=== PATIENT | female | born 1995 | race Caucasian/White ===

== ENCOUNTER 2021-07-05 08:00 | Outpatient (CLI) | payer OTHER | END 2021-07-05 23:59 | LOC: LAB.N 08:00 | PROVIDERS: ATTEND Physician Assistant | DX: R05.9 Cough, unspecified (principal); R52 Pain, unspecified; Z20.822 Contact with and (suspected) exposure to COVID-19 ==

== ENCOUNTER 2022-04-13 08:17 | Outpatient (CLI) | payer OTHER ==
[2022-04-13 12:11] LABS: BASOPHILS % (AUTO) 0.5 %; EOSINOPHILS # (AUTO) 0.2 10^3/uL (0.0-0.7); EOSINOPHILS % (AUTO) 3.8 %; HCT - HEMATOCRIT 41.1 % (37.0-47.0); HGB - HEMOGLOBIN 13.2 g/dL (12.0-16.0); LYMPHOCYTES # (AUTO) 1.4 10^3/uL (1.5-3.5); LYMPHOCYTES % (AUTO) 24.9 %; MEAN CORPUSCULAR HEMOGLOBIN 29.5 pg (27.0-31.0); MEAN CORPUSCULAR HGB CONC 32.1 g/dL (32.0-36.0); MEAN CORPUSCULAR VOLUME 91.9 fL (81.0-99.0); MEAN PLATELET VOLUME 10.4 fL (7.9-10.8); MONOCYTES # (AUTO) 0.4 10^3/uL (0.0-1.0); MONOCYTES % (AUTO) 7.3 %; NEUTROPHILS # (AUTO) 3.5 10^3/uL (1.5-6.6); PLT - PLATELET COUNT 243 10^3/uL (130-450); RED BLOOD COUNT 4.47 10^6/uL (4.20-5.40); RED CELL DISTRIBUTION WIDTH 12.5 % (12.0-15.0); WHITE BLOOD COUNT 5.5 x10^3/uL (4.8-10.8)
[2022-04-13 12:54] LABS: ALBUMIN 4.2 g/dL (3.2-5.5); ALBUMIN/GLOBULIN RATIO 1.4 (1.0-2.2); ALKALINE PHOSPHATASE 40 IU/L (42-121); ALT ALANINE AMINOTRANSFERASE 13 IU/L (10-60); AST ASPARTATE AMINOTRANSFERASE 18 IU/L (10-42); BILIRUBIN,TOTAL 0.7 mg/dL (0.2-1.0); BUN - BLOOD UREA NITROGEN 15 mg/dL (6-20); CALCIUM 9.3 mg/dL (8.5-10.3); CARBON DIOXIDE - CO2 28 mmol/L (21-32); CHLORIDE 101 mmol/L (101-111); CHOLESTEROL 165 mg/dL; CREATININE 0.6 mg/dL (0.4-1.0); GFR - MDRD 121 (>89); GLUCOSE 95 mg/dL (70-100); HDL CHOLESTEROL 55 mg/dL; LDL CHOLESTEROL,CALCULATED 100 mg/dL; LDL/HDL RATIO 1.8 (<4.4); SODIUM 136 mmol/L (135-145); TOTAL PROTEIN 7.3 g/dL (6.7-8.2); TRIGLYCERIDES 51 mg/dL; VLDL CHOLESTEROL 10 mg/dL
[2022-04-13 12:55] LABS: THYROID STIMULATING HORMONE 0.78 uIU/mL (0.34-5.60)
== END 2022-04-13 08:18 | disposition home or self-care (01) ==
LOC: LAB.N 08:17
PROVIDERS: ATTEND Physician Assistant
DX: Z13.29 Encounter for screening for other suspected endocrine disorder (principal); Z51.81 Encounter for therapeutic drug level monitoring; Z13.220 Encounter for screening for lipoid disorders
CPT/HCPCS: 36415; 80053; 80061; 83721; 84443; 85025

== ENCOUNTER 2022-04-17 08:57 | Outpatient (CLI) | payer OTHER ==
--- NOTE | 2022-04-17 10:11 | XRAY Report ---
PROCEDURE: Cervical Spine Comp w/Flex/Ext INDICATIONS: CERVICALGIA TECHNIQUE: 7 views of the cervical spine were acquired. COMPARISON: None. FINDINGS: Bones: No fractures or dislocations to the C7 level. No suspicious bony lesions. There is mild-to- moderate facet arthropathy, most pronounced at C4-C5 on the right. Oblique views demonstrate no high-grade foramina stenosis Flexion and extension: There is normal range of motion between flexion and extension. There is trace anterolisthesis of C4 on C5, C5 on C6 and C6 on C7 with flexion. Preserved normal bony alignment. Soft tissues: Prevertebral soft tissues are normal in thickness. IMPRESSION: 1. Degenerative facet arthropathy cervical spine, most pronounced at C4-C5 the right. 2. No significant foraminal stenosis. 3. Trace anterolisthesis at C4-C5, C5-C6 and C6-C7 on flexion. Reviewed by: Chasity Whiting MD on 04/17/2022 10:09 AM PST Approved by: Chasity Whiting MD on 04/17/2022 10:09 AM PST Station ID: [id number]
--- NOTE | 2022-04-17 10:13 | XRAY Report ---
PROCEDURE: Thoracic Spine 3 View INDICATIONS: SCOLIOSIS TECHNIQUE: 3 views of the thoracic spine were acquired. COMPARISON: None. FINDINGS: Bones: No fractures or dislocations. No suspicious bony lesions. There is a dextroscoliosis with ap ex at L2. This mild degenerative disc disease at T8-T9, T9-T10, T10-T11 and T11-T12. 12 pairs of ribs are noted, and appear intact where visualized. Soft tissues: No paravertebral stripe thickening. IMPRESSION: 1. Mild degenerative disease in the lower thoracic spine. 2. Dextroscoliosis. Reviewed by: Chasity Whiting MD on 04/17/2022 10:12 AM [facility] Approved by: Chasity Whiting MD on 04/17/2022 10:12 AM [facility] Station ID: [id number]
--- NOTE | 2022-04-17 10:19 | XRAY Report ---
PROCEDURE: Lumbar Spine Complete INDICATIONS: SCOLIOSIS TECHNIQUE: 5 views of the lumbar spine were acquired. COMPARISON: None. FINDINGS: Bones: 5 cid-jbc-cpcjrmw vertebrae are present. There is dextroscoliosis with apex at L2. Trace an terolisthesis of L5 on S1. No vertebral body compression fractures. No suspicious bony lesions. The re is mild degenerative disc disease at L2-L3, L3-L4 and L4-L5. Moderate facet arthropathy at L3-L4, L4-L5 and L5-S1. Probable pars defect at L5. Soft tissues: Overlying bowel gas pattern is normal. No suspicious soft tissue calcifications. IMPRESSION: 1. Dextroscoliosis. 2. Trace anterolisthesis of L5 on S1. 3. Suspect pars defect at L5. 4. Mild degenerative disc disease. 5. Moderate facet arthropathy. Reviewed by: Chasity Whiting MD on 04/17/2022 10:17 AM PST Approved by: Chasity Whiting MD on 04/17/2022 10:17 AM PST Station ID: [id number]
== END 2022-04-17 08:58 | disposition home or self-care (01) ==
LOC: LAB.N 08:57 → DI.N 08:58
PROVIDERS: ATTEND Physician Assistant
DX: M47.812 Spondylosis without myelopathy or radiculopathy, cervical region (principal); M43.12 Spondylolisthesis, cervical region; M51.34 Other intervertebral disc degeneration, thoracic region; M41.9 Scoliosis, unspecified; M51.36 Other intervertebral disc degeneration, lumbar region; M47.816 Spondylosis without myelopathy or radiculopathy, lumbar region; M47.817 Spondylosis without myelopathy or radiculopathy, lumbosacral region

== ENCOUNTER 2022-06-27 07:13 | Outpatient (CLI) | payer OTHER ==
[2022-06-27] MEDS ORDERED: GADOBUTROL 7.5 MMOL/7.5 ML VIAL ONE (07:20)
[2022-06-27] MEDS ORDERED: GADOBUTROL 7.5 MMOL/7.5 ML VIAL IVP ONE (11:08)
--- NOTE | 2022-06-27 14:57 | MRI Report ---
PROCEDURE: BRAIN W/WO INDICATIONS: MIXED HEADACHE CONTRAST: gadavsit 6.6ml TECHNIQUE: Noncontrast axial T1 spin echo, axial T2 fast spin echo, sagittal and axial FLAIR, coronal T2 fast sp in echo, axial gradient echo, axial diffusion and ADC through the brain. After the administration of contrast, axial and coronal T1 spin echo with fat saturation through the brain. COMPARISON: None. FINDINGS: Image quality: Excellent. CSF spaces: Basal cisterns are patent. No extra-axial fluid collections. Ventricles are normal in size and shape. Brain: No midline shift. No intracranial bleeds or masses. No abnormal intracranial enhancement. There is cerebral volume loss for age. There is periventricular white matter chronic small vessel is chemic change. The brainstem appears normal. Diffusion-weighted images demonstrate no acute ischemi c insults. No chronic ischemic insults. Normal intravascular flow voids are present. Skull and face: Calvarial marrow is normal in signal. Orbits appear normal. Sinuses: Sinuses demonstrate minimal scattered mucosal thickening.. No fluid levels. IMPRESSION: 1. No acute intracranial process. 2. Minimal scattered pansinus mucosal thickening. Reviewed by: Stacey Bettencourt MD on 06/27/2022 2:56 PM PST Approved by: Stacey Bettencourt MD on 06/27/2022 2:56 PM PST Station ID: [id number]
== END 2022-06-27 07:14 | disposition home or self-care (01) ==
LOC: DI 07:13
PROVIDERS: ATTEND Physician Assistant
DX: R51.9 Headache, unspecified (principal)
CPT/HCPCS: 70553; A9585

== ENCOUNTER 2022-11-22 21:40 | Emergency (ER) | payer OTHER ==
--- NOTE | 2022-11-22 22:12 | ED Physician Documentation ---
PD HPI CHEST PAIN - Stated complaint Stated Complaint: HEART PX - Chief complaint Chief Complaint: Cardiac - History obtained from History obtained from: Patient - Additional information Additional information: She had about an hour worth of palpitations with lightheadedness and shortness of breath finishing up about 30 minutes ago. It started at rest. She did drink a lot of caffeine today and got back from an international trip early yesterday so she is tired and jet lag. No chest pain. No personal history of heart problems. Valvular disease runs in the family. Denies pedal edema or calf pain. No possibility of . 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 : None HEENT: None Psych: Anxiety, Obsessive compulsive disorder Musculoskeletal: None Derm: None - Past Surgical History Past Surgical History: No - Present Medications Home Medications: Ambulatory Orders Medication Instructions Recorded Confirmed FLUoxetine [PROzac] 60 mg PO DAILY 11/22/22 11/22/22 - Allergies Allergies/Adverse Reactions: Allergies Allergy/AdvReac Type Severity Reaction Status Date / Time No Known Drug Allergies Allergy Verified 11/22/22 21:58 - Social History Does the pt smoke?: No Smoking Status: Never smoker Does the pt drink ETOH?: Yes Does the pt have substance abuse?: No - Immunizations Immunizations are current?: Yes - POLST Patient has POLST: No PD ED PE NORMAL - Vitals Vital signs reviewed: Yes - General General: Alert and oriented X 3, No acute distress - Cardiac Cardiac: RRR, No murmur - Respiratory Respiratory: No respiratory distress, Clear bilaterally - Abdomen Abdomen: Non tender - Extremities Extremities: No edema, No calf tenderness / cord - Neuro Neuro: Alert and oriented X 3, Normal speech Results - Vitals Vitals: Vital Signs - 24 hr 11/22/22 21:48 Temperature 36.2 C L Heart Rate 89 Respiratory 18 Rate Blood Pressure 143/82 H O2 Saturation 100 Oxygen O2 Source Room air - EKG (time done) 2 EKG releavant findings:: EKG personally interpreted by author of this note. Relevant findings are: Rate: Rate (enter#) (68) Rhythm: NSR [place]: Normal Intervals: Normal [place] QRS: Normal Ischemia: Normal ST segments - Labs Labs: Laboratory Tests 11/22/22 11/22/2223 22:20 22:20 22:20 WBC 8.9 RBC 4.36 Hgb 13.2 Hct 39.9 MCV 91.5 MCH 30.3 MCHC 33.1 RDW 12.4 Plt Count 214 MPV 9.3 Neut # (Auto) 6.0 Lymph # (Auto) 1.9 Barren # (Auto) 0.7 Eos # (Auto) 0.2 Baso # (Auto) 0.1 Absolute Nucleated RBC 0.00 Nucleated RBC % 0.0 D-Dimer < 200.0 L Sodium 138 Potassium 3.0 L Chloride 105 Carbon Dioxide 27 Anion Gap 6.0 BUN 13 Creatinine 0.8 Estimated GFR (MDRD) 86 L Glucose 97 Calcium 9.1 Troponin I High Sens 11/22/22 22:20 WBC RBC Hgb Hct MCV MCH MCHC RDW Plt Count MPV Neut # (Auto) Lymph # (Auto) Barren # (Auto) Eos # (Auto) Baso # (Auto) Absolute Nucleated RBC Nucleated RBC % D-Dimer Sodium Potassium Chloride Carbon Dioxide Anion Gap BUN Creatinine Estimated GFR (MDRD) Glucose Calcium Troponin I High Sens < 2.3 L PD Medical Decision Making - ED course ED course: 27-year-old with a resolved hour of palpitations that she thinks is related to anxiety and excessive caffeine use in the setting of jet lag. Differential would have to consider thromboembolic disease given recent travel although that seems somewhat less likely given the resolved nature of her symptoms, normal vital signs, and lack of physical findings of DVT. D-dimer is pending. Departure - Departure Disposition: 01 Home, Self Care Clinical Impression: Palpitations Condition: Stable Record reviewed to determine appropriate education?: Yes Instructions: ED Palpitations Comments: Call your doctor to arrange a follow-up appointment, make the next available appointment. In the interim, return anytime if worse or if new symptoms develop.
[2022-11-22 22:26] LABS: BASOPHILS # (AUTO) 0.1 10^3/uL (0.0-0.1); BASOPHILS % (AUTO) 0.7 %; EOSINOPHILS # (AUTO) 0.2 10^3/uL (0.0-0.7); EOSINOPHILS % (AUTO) 2.7 %; HCT - HEMATOCRIT 39.9 % (37.0-47.0); HGB - HEMOGLOBIN 13.2 g/dL (12.0-16.0); LYMPHOCYTES # (AUTO) 1.9 10^3/uL (1.5-3.5); LYMPHOCYTES % (AUTO) 21.3 %; MEAN CORPUSCULAR HEMOGLOBIN 30.3 pg (27.0-31.0); MEAN CORPUSCULAR HGB CONC 33.1 g/dL (32.0-36.0); MEAN CORPUSCULAR VOLUME 91.5 fL (81.0-99.0); MEAN PLATELET VOLUME 9.3 fL (7.9-10.8); MONOCYTES # (AUTO) 0.7 10^3/uL (0.0-1.0); MONOCYTES % (AUTO) 7.8 %; NEUTROPHILS % (AUTO) 67.3 %; PLT - PLATELET COUNT 214 10^3/uL (130-450); RED BLOOD COUNT 4.36 10^6/uL (4.20-5.40); RED CELL DISTRIBUTION WIDTH 12.4 % (12.0-15.0); WHITE BLOOD COUNT 8.9 x10^3/uL (4.8-10.8)
[2022-11-22 22:35] LABS: CALCIUM 9.1 mg/dL (8.5-10.3); CREATININE 0.8 mg/dL (0.4-1.0)
[2022-11-22 23:03] VITALS: BP 135/79
--- OUTSIDE RECORDS SUMMARY | 2022-11-22 23:18 | EXTERNAL MEDICAL SUMMARY RPT | Continuity of Care Document ---
Author Name Unknown Address [address] [place] [address] Phone Organization [facility] Address [address] [place] [address] Phone Results/Labs test date author facility value unit interpretation Result panel 1 (unknown) (no date) (unknown) (unknown) <1.00 ug/ml(g) 04142-0 (unknown) (no date) (unknown) (unknown) <1.00 ug/ml(g) (unknow n) (unknown) (no date) (unknown) (unknown) Negative (units unknown) (unknown) (unknown) (no date) (unknown) (unknown) Negative (units unknown) 6371-9 (unknown) (no date) (unknown) (unknown) Negative (units unknown) 6412-1 Result panel 2 (unknown) (no date) (unknown) (unknown) (no value) (units unknown) (unknown) (unknown) (no date) (unknown) (unknown) Negative for Campylobacter (units unknown) (unknown) Result panel 3 (unknown) (no date) (unknown) (unknown) Negative (units unknown) (unknown) Result panel 4 (unknown) (no date) (unknown) (unknown) (no value) (units unknown) (unknown) (unknown) (no date) (unknown) (unknown) Negative for Campylobacter (units unknown) (unknown) (unknown) (no date) (unknown) (unknown) No fecal leuko cytes present (units unknown) (unknown) Result panel 5 (unknown) (no date) (unknown) (unknown) (no value) (units unknown) (unknown) (unknown) (no date) (unknown) (unknown) Moderate growt h - Mixed fecal dre (units unknown) (unknown) (unknown) (no date) (unknown) (unknown) Negative for Campylobacter (units unknown) (unknown) (unknown) (no date) (unknown) (unknown) No fecal leuko cytes present (units unknown) (unknown) Result panel 6 (unknown) (no date) (unknown) (unknown) (no value) (units unknown) (unknown) (unknown) (no date) (unknown) (unknown) Moderate growt h - Mixed fecal dre (units unknown) (unknown) (unknown) (no date) (unknown) (unknown) Negative for Campylobacter (units unknown) (unknown) (unknown) (no date) (unknown) (unknown) Negative for S lisandro Toxin 1 (units unknown) (unknown) (unknown) (no date) (unknown) (unknown) Negative for S lisandro Toxin 2 (units unknown) (unknown) (unknown) (no date) (unknown) (unknown) No fecal leuko cytes present (units unknown) (unknown) Result panel 7 (unknown) (no date) (unknown) (unknown) (no value) (units unknown) (unknown) (unknown) (no date) (unknown) (unknown) Moderate growt h - Mixed fecal dre (units unknown) (unknown) (unknown) (no date) (unknown) (unknown) Negative for Campylobacter (units unknown) (unknown) (unknown) (no date) (unknown) (unknown) Negative for S lisandro Toxin 1 (units unknown) (unknown) (unknown) (no date) (unknown) (unknown) Negative for S lisandro Toxin 2 (units unknown) (unknown) (unknown) (no date) (unknown) (unknown) No Salmonella/Shigella /Yersinia/Campy/E.c jose armando 0157 isolated (units unknown) (unknown) (unknown) (no date) (unknown) (unknown) No fecal leuko cytes present (units unknown) (unknown) Result panel 8 (unknown) (no date) (unknown) (unknown) (no value) (units unknown) (unknown) (unknown) (no date) (unknown) (unknown) [address], [place], [place] [id number] (units unknown) (unknown) (unknown) (no date) (unknown) (unknown) Cna Hha: Yany Dejesus MD, Phone: [phone] (units unknown) (unknown) (unknown) (no date) (unknown) (unknown) Negative (units unknown) (unknown) (unknown) (no date) (unknown) (unknown) Performed at: [facility] - [facility] [place] (units unknown) (unknown) Result panel 9 (unknown) (no date) (unknown) (unknown) <1.00 ug/ml(g) (unknow n) (unknown) (no date) (unknown) (unknown) <1.00 ug/ml(g) (unknow n)
== END 2022-11-22 23:21 | disposition home or self-care (01) ==
LOC: ED 21:40
DX: R00.2 Palpitations (principal)
CPT/HCPCS: 36415; 80048; 84484; 85025; 85379; 93005; 99283; 99284

== ENCOUNTER 2023-01-18 08:49 | Outpatient (CLI) | payer OTHER ==
[2023-01-18 12:45] LABS: BASOPHILS % (AUTO) 0.7 %; EOSINOPHILS # (AUTO) 0.2 10^3/uL (0.0-0.7); HCT - HEMATOCRIT 41.1 % (37.0-47.0); HGB - HEMOGLOBIN 13.2 g/dL (12.0-16.0); MEAN CORPUSCULAR HEMOGLOBIN 29.9 pg (27.0-31.0); MEAN CORPUSCULAR HGB CONC 32.1 g/dL (32.0-36.0); MEAN CORPUSCULAR VOLUME 93.2 fL (81.0-99.0); MEAN PLATELET VOLUME 10.5 fL (7.9-10.8); MONOCYTES # (AUTO) 0.4 10^3/uL (0.0-1.0); MONOCYTES % (AUTO) 6.5 %; NEUTROPHILS # (AUTO) 3.8 10^3/uL (1.5-6.6); NEUTROPHILS % (AUTO) 70.4 %; PLT - PLATELET COUNT 222 10^3/uL (130-450); RED BLOOD COUNT 4.41 10^6/uL (4.20-5.40); RED CELL DISTRIBUTION WIDTH 12.5 % (12.0-15.0); WHITE BLOOD COUNT 5.4 x10^3/uL (4.8-10.8)
[2023-01-18 13:10] LABS: ALBUMIN 4.3 g/dL (3.2-5.5); ALBUMIN/GLOBULIN RATIO 1.5 (1.0-2.2); BILIRUBIN,TOTAL 0.4 mg/dL (0.2-1.0); CALCIUM 9.3 mg/dL (8.5-10.3); CREATININE 0.6 mg/dL (0.6-1.3); CRP - C-REACTIVE PROTEIN 0.5 mg/dL (<0.5); TOTAL PROTEIN 7.2 g/dL (6.4-8.9)
[2023-01-18 13:24] LABS: THYROID STIMULATING HORMONE 0.76 uIU/mL (0.34-5.60)
[2023-01-18 13:55] LABS: RHEUMATOID FACTOR NEGATIVE (Negative)
[2023-01-19 02:08] LABS: VITAMIN D 25-HYDROXY 39.2 ng/mL (30.0-100.0)
[2023-01-19 18:07] LABS: ANTI-DNA (DS) AB QN <1 IU/mL (0-9)
[2023-01-19 20:08] LABS: CYCLIC CITRULLINATED PEP IGG/A 3 units (0-19)
[2023-01-21 11:09] LABS: ANTINUCLEAR ANTIBODIES IFA Positive (.)
== END 2023-01-18 08:50 | disposition home or self-care (01) ==
LOC: LAB.N 08:49
PROVIDERS: ATTEND Physician Assistant
DX: R53.83 Other fatigue (principal); M85.80 Other specified disorders of bone density and structure, unspecified site; M25.50 Pain in unspecified joint
CPT/HCPCS: 36415; 80053; 82306; 82607; 84443; 85025; 85651; 86038; 86140; 86200; 86225; 86430

== ENCOUNTER 2023-06-21 10:32 | Outpatient (CLI) | payer OTHER ==
[2023-06-21 11:16] LABS: THYROID STIMULATING HORMONE 0.63 uIU/mL (0.34-5.60)
[2023-06-21 11:21] LABS: PROLACTIN 12.37 ng/mL
[2023-06-22 07:10] LABS: PROGESTERONE 6.1 ng/mL (.)
== END 2023-06-21 10:33 | disposition home or self-care (01) ==
LOC: LAB 10:32
PROVIDERS: ATTEND Obstetrics & Gynecology
DX: L68.0 Hirsutism (principal)
CPT/HCPCS: 36415; 82627; 82670; 83001; 83002; 83498; 84144; 84146; 84403; 84443

== ENCOUNTER 2023-07-05 09:57 | Outpatient (CLI) | payer OTHER ==
--- NOTE | 2023-07-05 15:52 | Ultrasound Report ---
PROCEDURE: Pelvic w/Transvaginal INDICATIONS: ENDOMETRIOSIS TECHNIQUE: Real-time scanning was performed of the pelvic organs, with image documentation. Additional endovagi nal scanning was necessary due to incomplete visualization of the adnexal and endometrial structures by transabdominal scanning. COMPARISON: None. FINDINGS: Uterus: Uterus is anteverted and normal in size at 6.6 x 2.5 x 4.2 cm. The myometrium is homogeneou s. The endometrium measures 2 mm in combined thickness. No uterine fibroids. Ovaries: The right ovary measures 2.9 x 2.7 x 2.0 cm, with a calculated ovarian volume of 8.2 cc. T he left ovary measures 2.9 x 2.1 x 1.9 cm, with a calculated ovarian volume of 6.0 cc. The ovaries h ave a normal sonographic appearance. Less than 12 follicles can be seen in each ovary. No adnexal m asses are seen. No cystic lesions measuring greater than 3 cm. Other: No pathologic free abdominal or pelvic fluid. IMPRESSION: 1.No evidence of polycystic ovarian syndrome. 2.Unremarkable pelvic ultrasound. Reviewed by: Arnulfo Ramirez MD on 07/05/2023 3:50 PM PST Approved by: Arnulfo Ramirez MD on 07/05/2023 3:50 PM PST Station ID: [id number]
== END 2023-07-05 09:58 | disposition home or self-care (01) ==
LOC: DI 09:57
PROVIDERS: ATTEND Obstetrics & Gynecology
DX: N80.9 Endometriosis, unspecified (principal)

== ENCOUNTER 2024-02-05 14:40 | Outpatient (CLI) | payer OTHER ==
--- NOTE | 2024-02-05 15:18 | Sleep Patient Instructions ---
Sleep Center Visit Summary - Patient Visit Information Reason for Visit: Initial consult for evaluation of sleep disordered breathing and other sleep issues. - Patient Instructions Instructions Attached: Sleep Study Additional Instructions: You will be completing a sleep study, either an in-lab polysomnography (PSG) or home sleep study (HST). You will follow-up in the sleep care office after the sleep study is completed to hear the results and talk about therapy, if needed. You will be called by our office staff to schedule this appointment, but you may contact us with any questions. - Clinic Information Contact: [facility] [address] [place] [address] [email or web address] T: [phone]
--- NOTE | 2024-02-05 15:25 | SLEEP CARE CONSULTATION ---
Information from patient questionnaire entered by Tapan Aranda. I have reviewed and concur with the information entered by Tapan Aranda. This document represents the service I personally performed and the decisions made by me, Vesta Marques ARNP. History of Present Illness Service Date and Time: 02/05/2024 1440 Reason for Visit: New patient Chief Complaint: reports: Snoring, Excessive daytime sleepiness, Fatigue, Other (FREQUENT WAKING ACCORDING TO SMART WATCH) Date of Onset: FATIGUE AND SNORING 5YRS Usual bedtime: 2230 Time it takes to fall asleep: 20MINS Snores at night: Yes Observed to quit breathing while asleep: Yes (she has noticed) Sleeps alone due to snoring: No Number of times waking at night: 2-3 KNOWN 10+ ACCORDING TO SMART WATCH Reasons for waking at night: reports: Gasping for air, Bathroom, Other (UNKNOWN). denies: Choking, Snoring Toss, Turn, or Twitch while sleeping: Yes Recalls having dreams: Yes Usually gets out of bed at: 0645 Feels refreshed in the morning: No Morning headache: Yes (ONLY RESOLVED WITH NSAIDS) Sleepy or fatigued during the day: Yes Ever fallen asleep while driving: No Takes day naps: Yes Dreams during day naps: Yes Prior sleep studies: No Additional HPI information: I had the pleasure of seeing HARPREET POOLE today regarding the possibility of her having a sleep disorder. Her current complaints are fatigue, excessive daytime sleepiness and snoring. She says about 6 months ago she started tracking her sleep with her Apple Watch that showed she was waking up 20 times a night. She only remembers waking up 2-3 times. She went to see her PCP with this information and she has a history of daytime fatigue. Her PCP suggested she have a sleep study. She says she is "newly " (8 weeks this Saturday) with her first child. She is experiencing severe morning sickness and sleeping more because of the medications she is taking to control her nausea. Her has told that she snores but has not mentioned any pauses in breathing. She wakes up with headaches mostly due to neck tension about 1 times a week. It has improved since she went through physical therapy. She is taking naps daily since she became . She is not waking up feeling rested and is fatigued during the day. She has felt like she is waking up short of breath but says she does have anxiety which may be a contributor. 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 Patient is and lives in [place]. Have you smoked in the past 12 months: No Alcohol use: No Alcohol amount and frequency: CURRENTLY Caffeine use: Yes Caffeine amount and frequency: 1 CUP COFFEE DAILY Family History Family history of sleep disordered breathing: Yes Family Hx Sleep Apnea: Father: Snoring Allergies and Home Medications Known drug allergies: No Drug allergies reviewed: Yes Home medication list reviewed: Yes (as listed) Allergy and home medication list: Allergies No Known Drug Allergies Allergy (Verified 02/05/24 14:45) Home Medications Medication Instructions Recorded Confirmed Last Taken Type FLUoxetine [PROzac] 60 mg PO DAILY 11/22/22 02/05/24 11/22/22 History Doxylamine Succinate [Unisom] See Rx Instructions .ROUTE .COMPLEX 02/05/24 02/05/24 Unknown History Famotidine [Pepcid] See Rx Instructions .ROUTE .COMPLEX 02/05/24 02/05/24 Unknown History Lactobacillus Combination No.4 See Rx Instructions .ROUTE .COMPLEX 02/05/24 02/05/24 Unknown History [Probiotic] Magnesium See Rx Instructions .ROUTE .COMPLEX 02/05/24 02/05/24 Unknown History Ondansetron Odt [Zofran Odt] See Rx Instructions .ROUTE .COMPLEX 02/05/2401/25 Unknown History Pnv No.95/Ferrous Fum/Folic AC See Rx Instructions .ROUTE .COMPLEX 02/05/24 02/05/24 Unknown History [ Caplet] Pyridoxine HCl (Vitamin B6) See Rx Instructions .ROUTE .COMPLEX 02/05/24 02/05/24 Unknown History [Vitamin B6] Review of Systems Weight gain over past 5 years: 15+ Cardiovascular: denies: high blood pressure Respiratory: reports: shortness of breath Gastrointestinal: reports: heartburn Neurological: reports: headaches Psychiatric: reports: anxiety, other (OCD) Ear/Nose/Throat: reports: wisdom teeth removed. denies: tonsillectomy Musculoskeletal: reports: joint pain, neck pain, back pain, muscle pain or cramping Immunologic: reports: rash, itching, allergies to food or environment Physical Exam Vital signs obtained and entered by: TAPAN Walden MA Blood Pressure: 121/77 (LEFT ARM) Cuff size: regular Heart Rate: 68 O2 Saturation: 100 Height: 5 ft 3 in Weight: 148 lb 3.2 oz Body Mass Index: 26.2 BMI Classification: Overweight Neck circumference: 14.25 Mouth and throat: narrow oropharynx Soft palate: normal Hard palate: normal Uvula: normal Uvula visualization: 50% Mallampati Class II Tongue: enlarged in size with teeth hinkle on lateral edges Tonsils: 1+ Neck: normal w/o lymphadenopathy or thyromegaly Heart: regular rate and rhythm Lungs: clear bilaterally Impression and Plan 1. Suspected Obstructive Sleep Apnea-Hypopnea Syndrome, as suggested by a history of loud and irregular snoring, gasping or choking in sleep, frequent awakening during the night, unrefreshed sleep, cognitive impairment, and excessive daytime sleepiness. Narrow oropharynx and obesity are common predisposing factors for obstructive sleep apnea-hypopnea syndrome. I recommend proceeding to polysomnography to confirm the diagnosis and to assess severity. If the patient has significant sleep disordered breathing, a manual CPAP titration study will also be performed to find the optimal treatment pressure. I informed the patient of what the sleep studies involve and after some discussion, obtained agreement to proceed. The pathophysiology of obstructive sleep apnea-hypopnea syndrome was discussed with the patient and health risks of cardiovascular and cerebrovascular disease if not treated. Risks of drowsy driving discussed in detail and patient advised to avoid long distance driving and to pull through hooker at the first sign of drowsiness. Patient agreed to plan. * Schedule polysomnography +- manual CPAP titration study and return in 1-2 weeks after the study to discuss result and initiate therapy. * Avoid long distance driving or driving when feeling sleepy. * Avoid alcohol, sedative and muscle relaxant around bedtime. * Attempt to lose weight. * Review instructions provided by trained office staff on how to prepare for the sleep study. * Return for follow-up after sleep study completed. Counseling Topics: Weight loss health impact Plan: Sleep study and followup Visit Type: In Office Time Spent with Patient (minutes): 30 Provider Statement: I spent 100% of the Face to Face Visit with the patient with greater than 50% spent counseling the patient and coordination of care.
[2024-02-05 15:26] VITALS: BP 121/77; O2SAT 100
== END 2024-02-05 14:41 | disposition home or self-care (01) ==
LOC: SC 14:40
PROVIDERS: ATTEND Nurse Practitioner Family
DX: O99.891 Other specified diseases and conditions complicating pregnancy (principal); R06.83 Snoring; G47.8 Other sleep disorders; G47.10 Hypersomnia, unspecified; R53.83 Other fatigue
CPT/HCPCS: 99203; 99212